=== PATIENT | male | born 1960 | race Caucasian/White ===

== ENCOUNTER 2021-08-10 07:42 | Outpatient (CLI) | payer OTHER, SELFPAY | END 2021-08-10 07:43 | disposition home or self-care (01) | LOC: ANHAUDASC 07:44 | PROVIDERS: PCP Internal Medicine | DX: H66.92 Otitis media, unspecified, left ear (principal); H90.6 Mixed conductive and sensorineural hearing loss, bilateral | CPT/HCPCS: 92557 ==